=== PATIENT | female | born 1980 | race Caucasian/White ===

== ENCOUNTER 2018-10-31 09:23 | Emergency (ER) | payer OTHER ==
[~2018-10-31] VITALS: Ht 165.1 cm; Wt 136.9 kg
[~2018-10-31 09:23] MED LIST: IBUPOTC PO; PEPT262S PO; PERCOCET PO; ROLA1CHW PO; ZANT150T15 PO
[2018-10-31] MEDS ORDERED: NS 1,000 ML IV SCH (09:51)
[2018-10-31] MEDS ORDERED: ONDANSETRON 4MG/2ML VIAL (J2405) IV ONE (10:00)
[2018-10-31] MEDS ORDERED: KETOROLAC 30 MG/ML VIAL (J1885) IV ONE (10:00)
[2018-10-31 10:07] LABS: BASO % 0.3 % (0.0-1.0); EOS # 0.1 10^3/uL (0.0-0.50); EOS % 0.7 % (0.0-3.0); HEMATOCRIT 43.9 % (36.0-47.0); HEMOGLOBIN 14.7 g/dl (12.0-15.5); LYMPH # 2.7 10^3/uL (1.5-4.5); MEAN CORPUSCULAR HEMOGLOBIN 29.6 pg (27.0-33.0); MEAN CORPUSCULAR HGB CONC 33.5 g/dl (32.0-36.5); MEAN CORPUSCULAR VOLUME 88.5 fl (80.0-96.0); MONO # 0.5 10^3/uL (0.0-0.8); NEUTROPHILS # 7.3 10^3/uL (1.8-7.7); NEUTROPHILS % 68.6 % (36.0-66.0); PLATELET COUNT, AUTOMATED 412 10^3/uL (150-450); RED BLOOD COUNT 4.96 10^6/uL (4.00-5.40); WHITE BLOOD COUNT 10.7 10^3/uL (4.0-10.0)
[2018-10-31 10:39] LABS: ALBUMIN 3.6 GM/DL (3.2-5.2); ALT/SGPT 21 U/L (12-78); BILIRUBIN,DIRECT < 0.1 MG/DL (0.0-0.2); BILIRUBIN,TOTAL 0.3 MG/DL (0.2-1.0); BLOOD UREA NITROGEN 5 MG/DL (7-18); CALCIUM LEVEL 8.3 MG/DL (8.5-10.1); CARBON DIOXIDE LEVEL 27 MEQ/L (21-32); CHLORIDE LEVEL 109 MEQ/L (98-107); CREATININE FOR GFR 0.64 MG/DL (0.55-1.30); GLOMERULAR FILTRATION RATE > 60.0 (>60); GLUCOSE, FASTING 100 MG/DL (70-100); LIPASE 62 U/L (73-393); POTASSIUM SERUM 4.3 MEQ/L (3.5-5.1); SODIUM LEVEL 139 MEQ/L (136-145); TOTAL PROTEIN 6.7 GM/DL (6.4-8.2)
[2018-10-31 10:47] LABS: HCG, SERUM QUALITATIVE NEGATIVE (NEGATIVE)
--- NOTE | 2018-10-31 12:08 | REP ---
CT ABDOMEN AND PELVIS WITHOUT IV OR ORAL CONTRAST: HISTORY: Left renal colic. COMPARISON CT STUDY: June 21, 2013. CT FINDINGS: Digital preliminary configuration management administrator radiograph shows an unremarkable bowel gas pattern. There are clips in the right upper quadrant consistent with previous cholecystectomy. The lung bases are clear on axial CT images. The liver and the spleen are normal in size homogeneous in texture. No adrenal lesion is seen on either side. No abnormalities noted in the pancreas. There is no evidence of hydronephrosis on either side. No intrarenal calculus is observed. No retroperitoneal mass or adenopathy is seen. No bladder calculus is seen. No uterine or ovarian abnormality is seen. There is a surgical clip anterior to the uterus between it and the urinary bladder. Small and large intestinal bowel loops are unremarkable. A normal appendix is seen in the right lower quadrant. No abdominal wall defect is seen. No bony destructive lesion is appreciated. IMPRESSION: Interval cholecystectomy since the [address] study[address] No urinary tract calculus or hydronephrosis seen. Otherwise negative. Normal appendix seen. Electronically Signed by Danny Mast MD 10/31/2018 03:42 P
[2018-10-31 12:14] VITALS: BP 124/72
== END 2018-10-31 12:16 | disposition home or self-care (01) ==
LOC: M ED 09:23
DX: R10.9 Unspecified abdominal pain (principal); Z87.19 Personal history of other diseases of the digestive system; Z87.442 Personal history of urinary calculi; Z88.1 Allergy status to other antibiotic agents; Z91.048 Other nonmedicinal substance allergy status; F17.210 Nicotine dependence, cigarettes, uncomplicated
CPT/HCPCS: 74176; 80048; 80076; 81001; 83690; 84703; 85025; 96374; 96375; 99284; J1885; J2405

== ENCOUNTER → 2020-09-02 | Outpatient (CLI) | payer OTHER ==
--- NOTE | 2020-09-02 15:32 | REP ---
INDICATION: UNSPECIFIED LUMP IN THE RIGHT BREAST, LOWER OUTER QUADRANT. Right breast mass, lower outer quadrant. Tender to palpation. The patient reports this in the lower inner quadrant near the sternum. She reports that this had an onset after 2 weeks of protracted coughing with respiratory infection. COMPARISON: No comparison breast imaging. TECHNIQUE: . Targeted sonography is performed in the right breast near 5 o'clock position adjacent to the sternum in the area of patient's tenderness and palpable abnormality. FINDINGS: Homogeneous fatty breast architecture is seen in the area of interest. There is a edematous area with small amount of complex fluid at the breast muscle interface in the region of tenderness. This measures approximately 2.3 x 0.3 x 1.3 cm and is compatible with edema and/or fluid, possibly related to costochondritis or superficial muscle tear in the superior portion of the rectus muscle attachments. No mass lesion is seen. IMPRESSION: BI-RADS category 3 probably benign findings. Irregularly-shaped edematous area versus fluid collection at the breast/muscle interface in the right parasternal region as above. This may be post traumatic or inflammatory. Repeat sonography suggested in 4-6 months. <Electronically signed by Artem Mast > 09/02/20 [id number]
== END ==
LOC: M RAD 13:36
PROVIDERS: ATTEND Nurse Practitioner Family
DX: N63.13 Unspecified lump in the right breast, lower outer quadrant (principal)

== ENCOUNTER 2022-01-14 19:20 | Emergency (ER) | payer OTHER ==
[2022-01-14] MEDS ORDERED: LIDOCAINE 1% MDV 20ML VIAL SC ONE (23:40)
[2022-01-15] MEDS ORDERED: BOOSTRIX/ADACEL VACCINE (DIPHTH/PERTUSS/ACELL/TETANUS) 0.5ML SYR IM ONE (00:05)
[2022-01-15] MEDS ORDERED: NEOSPORIN OINT 0.9 GM PKT TOP ONE (00:05)
[2022-01-15] MEDS ORDERED: NORCO, ANEXSIA 5/325MG TABLET (HYDROcodone/ACETAMINOPHEN) PO ONE (00:05)
[2022-01-15] MEDS ORDERED: AUGMENTIN 875 MG TAB PO ONE (00:05)
[2022-01-15] MEDS ORDERED: AMOX875T2 PO (00:41)
[2022-01-15 00:55] VITALS: BP 136/74
== END 2022-01-15 01:11 | disposition home or self-care (01) ==
LOC: M ED 19:20 → EDBD 19:20 → M ED 01-15 01:11
DX: S81.811A Laceration without foreign body, right lower leg, initial encounter (principal); S80.811A Abrasion, right lower leg, initial encounter; X58.XXXA Exposure to other specified factors, initial encounter; Y92.099 Unspecified place in other non-institutional residence as the place of occurrence of the external cause; F17.200 Nicotine dependence, unspecified, uncomplicated; E66.9 Obesity, unspecified; Z88.1 Allergy status to other antibiotic agents; Z88.8 Allergy status to other drugs, medicaments and biological substances; Z91.89 Other specified personal risk factors, not elsewhere classified

== ENCOUNTER 2022-01-14 19:29 | Emergency (ER) | payer OTHER ==
[~2022-01-14] VITALS: Ht 165.1 cm; Wt 127.3 kg
[2022-01-14 19:30] VITALS: BP 140/83
[2022-01-15] MEDS ORDERED: AMOX875T2 PO (00:41)
== END 2022-01-14 19:45 | disposition home or self-care (01) ==
LOC: M ED 19:29
DX: Z53.9 Procedure and treatment not carried out, unspecified reason (principal)

== ENCOUNTER 2022-01-26 13:07 | Emergency (ER) | payer OTHER ==
[~2022-01-26] VITALS: Ht 165.1 cm; Wt 135.4 kg
[~2022-01-26 13:07] MED LIST changes: +AMOX875T2 PO
[2022-01-26 16:59] LABS: BASO % 0.3 % (0.0-1.0); EOS # 0.3 10^3/uL (0.0-0.5); EOS % 1.8 % (0.0-3.0); HEMATOCRIT 42.3 % (36.0-47.0); HEMOGLOBIN 14.2 g/dl (12.0-15.5); LYMPH # 3.9 10^3/uL (1.5-5.0); LYMPH % 28.2 % (24.0-44.0); MEAN CORPUSCULAR HEMOGLOBIN 30.1 pg (27.0-33.0); MEAN CORPUSCULAR HGB CONC 33.6 g/dl (32.0-36.5); MEAN CORPUSCULAR VOLUME 89.8 fl (80.0-96.0); MONO # 0.9 10^3/uL (0.0-0.8); MONO % 6.2 % (2.0-8.0); NEUTROPHILS # 8.7 10^3/uL (1.5-8.5); NEUTROPHILS % 63.1 % (36.0-66.0); PLATELET COUNT, AUTOMATED 423 10^3/uL (150-450); RED BLOOD COUNT 4.71 10^6/uL (4.00-5.40); WHITE BLOOD COUNT 13.7 10^3/uL (4.0-10.0)
[2022-01-26 17:20] LABS: BLOOD UREA NITROGEN 14 MG/DL (7-18); CALCIUM LEVEL 8.7 MG/DL (8.5-10.1); CARBON DIOXIDE LEVEL 28 MEQ/L (21-32); CHLORIDE LEVEL 108 MEQ/L (98-107); CREATININE FOR GFR 0.62 MG/DL (0.55-1.30); GLOMERULAR FILTRATION RATE > 60.0 (>60); GLUCOSE, FASTING 82 MG/DL (70-100); POTASSIUM SERUM 3.9 MEQ/L (3.5-5.1); SODIUM LEVEL 140 MEQ/L (136-145)
[2022-01-26 17:30] LABS: ERYTHROCYTE SEDIMENTATION RATE 7 mm/hr (0-20)
[2022-01-26 18:30] VITALS: BP 125/88
== END 2022-01-26 18:40 | disposition home or self-care (01) ==
LOC: M ED 13:07
DX: Z48.02 Encounter for removal of sutures (principal); L25.9 Unspecified contact dermatitis, unspecified cause; F17.200 Nicotine dependence, unspecified, uncomplicated; Z88.1 Allergy status to other antibiotic agents; Z88.8 Allergy status to other drugs, medicaments and biological substances; Z91.89 Other specified personal risk factors, not elsewhere classified